=== PATIENT | male | born 1955 | race Caucasian/White ===

== ENCOUNTER 2022-03-11 23:41 | Inpatient (IN) | payer OTHER ==
[~2022-03-11] VITALS: Ht 180.3 cm; Wt 70.3 kg
--- NOTE | 2022-03-11 23:55 | NUR ---
IV CANNULA G20 INSERTED ON RIGHT AC. BLOOD DRAWN AND SENT TO LAB
--- NOTE | 2022-03-11 23:56 | NUR ---
RT AT BEDSIDE
--- NOTE | 2022-03-11 23:57 | NUR ---
EKG DONE AT BEDSIDE
[2022-03-12] VITALS (63 sets, daily range): BP systolic 0–120; BP diastolic 0–95
--- NOTE | 2022-03-12 | NUR ---
RT NOTE pt rec'd on CPAP mask @ 15lpm per [employer]. Pt showed tachypnea, accesory muscle usage, and tachycardia. Pt placed on bipap on noted settings per md orders. Alarms are set and audible. Ambu bag at bedside. bipap plugged into red outlet. ABG to be taken within 1 hour Addendum: 03/12/22 at 0242 by CHERELLE DUNBAR RT Amended: Links added.
[2022-03-12 00:03] LABS: BASOPHILS # (AUTO) 0.1 K/uL (0.0-0.2); BASOPHILS % (AUTO) 0.7 % (0.0-2.0); EOSINOPHILS % (AUTO) 0.1 % (0.0-6.0); HEMATOCRIT 41 % (39-51); LYMPHOCYTES # (AUTO) 2.9 K/uL (0.8-4.8); MEAN CORPUSCULAR HGB CONC 32 g/dl (31.0-36.0); MEAN CORPUSCULAR VOLUME 95 fL (80-96); MONOCYTES # (AUTO) 0.3 K/uL (0.1-1.30); MONOCYTES % (AUTO) 1.5 % (2.0-12.0); NEUTROPHILS # (AUTO) 17.1 K/uL (1.8-8.9); NEUTROPHILS % (AUTO) 83.7 % (43.0-81.0); PLATELET COUNT (AUTO) 332 K/uL (150-450); RED BLOOD CELL COUNT(AUTO) 4.28 MIL/uL (4.5-6.0); WHITE BLOOD COUNT (AUTO) 20.5 K/uL (4.3-11.0)
[2022-03-12] MEDS ORDERED: IV NS 0.9% 250 ML IV ONE ×2 (00:03→14:20)
[2022-03-12] MEDS ORDERED: CT SWABBABLE VALVE TRANS SET 1 EA INFUS.SET MC ONE ×2 (00:03→14:20)
[2022-03-12] MEDS ORDERED: IOHEXOL-350 100 ML VIAL IV ONE ×2 (00:03→14:19)
[2022-03-12 00:09] LABS: CALCIUM, SERUM 9.5 mg/dL (8.5-10.1); CARBON DIOXIDE 22 mmol/L (21-32); CHLORIDE 95 mmol/L (98-107); CREATININE 1.4 mg/dL (0.6-1.3); GLUCOSE 208 mg/dL (74-106); POTASSIUM 3.8 mmol/L (3.5-5.1); SODIUM SERUM 131 mmol/L (136-145); UREA NITROGEN, BLOOD 21 mg/dL (7-18)
--- NOTE | 2022-03-12 00:18 | NUR ---
TROP 219
--- NOTE | 2022-03-12 00:23 | NUR ---
Patricia luna in EDM - 03/12/22 at 0612 by KETTY INTUBATION DONE AT BEDSIDE BY DR JONES USING ET TUBE 7.5, LIP LEVEL 22CM
--- NOTE | 2022-03-12 00:25 | NUR ---
Patricia luna in ED - 03/12/22 at 0612 by KETTY [facility] F16 INSERTED. URINE SPECIMEN SENT TO LAB
--- NOTE | 2022-03-12 00:40 | NUR ---
BROUGHT TO CT DEPT
--- NOTE | 2022-03-12 00:45 | NUR ---
PATIENT'S CPAP SETTING. EPAP 23, IPAP 14, RATE 18, FI02 100%.
--- NOTE | 2022-03-12 01:18 | NUR ---
PATIENT BECAME UNRESPONSIVE. NOTICED APNEA DESPITE CPAP. MD MADE AWARE. PATIENT IS FOR INTUBATION. O2 SATS 84%
--- NOTE | 2022-03-12 01:20 | NUR ---
AMBUBAGGING DONE AT 15LPM. MD PREPARING FOR INTUBATION HR 62BPM, BP 128/99mmHg, Sat 84%
--- NOTE | 2022-03-12 01:22 | NUR ---
INTUBATION MEDS: SUCCINYLCHOLINE IVP 100MG AND ETOMIDATE 2OMG IVP GIVEN
--- NOTE | 2022-03-12 01:23 | NUR ---
INTUBATION DONE AT BEDSIDE BY DR ALFREDO. USING ET TUBE 7.5, LIP LEVEL 22CM
--- NOTE | 2022-03-12 01:25 | NUR ---
IFC F16 INSERTED. URINE SPECIMEN SENT TO LAB
[2022-03-12] MEDS ORDERED: HEPARIN SODIUM, PORCINE 5000 UNITS/1 ML VIAL ONE (01:29)
[2022-03-12] MEDS ORDERED: HEPARIN INFUSION/D5W 500 ML IV PRN ×2 (01:30→16:00)
[2022-03-12] MEDS ORDERED: HEPARIN SODIUM, PORCINE 5000 UNITS/1 ML VIAL IV ONE (01:30)
--- NOTE | 2022-03-12 01:30 | NUR ---
RT NOTE LATE ENTRY RT called to bedside. Pt showed shallow breathing and Low SPo2. Pt orally intubated via ETT sz #7.5 secured at 22CM at the lipline Per md orders. Color change noted via Co2 Detector. Clear bilateral breath sounds noted on auscultation. Pt placed on [facility] vent on noted settings per md orders. Alarms are set and audible. Vent plugged into red outlet. Ambu bag at bedside. Waiting on Chest xray results. ABG to be taken within 1 hour. Addendum: 03/12/22 at 0253 by CHERELLE DUNBAR RT Amended: Links added.
--- NOTE | 2022-03-12 01:50 | NUR ---
ASSOCIATE DENTIST AT BEDSIDE
[2022-03-12] MEDS ORDERED: MIDAZOLAM HCL 5 MG/5ML VIAL ONE (01:55)
[2022-03-12] MEDS ORDERED: HEPARIN INFUSION/D5W 500 ML IV ONE (01:59)
[2022-03-12] MEDS ORDERED: FENTANYL CITRAT IV 2,500 MCG in IV NS 0.9% 200 ML IV PRN ×2 (02:00→05:00)
[2022-03-12] MEDS ORDERED: MIDAZOLAM HCL 5 MG/5ML VIAL IV ONE (02:00)
[2022-03-12] MEDS ORDERED: MIDAZOLAM HCL 100 MG in IV NS 0.9% 80 ML IV PRN ×2 (02:00→05:00)
[2022-03-12] MEDS ORDERED: IV NS 0.9% 1,000 ML IV PRN ×2 (02:00→03:30)
--- NOTE | 2022-03-12 02:08 | NUR ---
HEPARIN INFUSION STARTED ON RIGHT AC G20 AT 1,250U/HR.
--- NOTE | 2022-03-12 02:10 | NUR ---
rt note late entry ETT advanced 3CM Per MD orders. ETT patent and secured at 25CM at the [facility]. Addendum: 03/12/22 at 0254 by CHERELLE DUNBAR RT Amended: Links added.
[2022-03-12] MEDS ORDERED: MIDAZOLAM 50 MG/10 ML VIAL ONE (02:18)
--- NOTE | 2022-03-12 02:26 | NUR ---
VERSED DRIP 50MG/5OML NS STARTED. RUNNING AT 1MG/HR. ATTACHED TO IV PAUL ON LEFT HAND G18
[2022-03-12 02:38] LABS: ABG BASE EXCESS -8.9 mmol/L; ABG PCO2 39.8 mmHg (35.0-45.0); ABG PH 7.262 (7.350-7.450); ABG PO2 117.1 mmHg (75.0-100.0); COHb 0.3 % (0.5-1.5); MetHb 0.3 % (0.0-1.5); O2Hb 96.7 % (94.0-97.0); SITE, ABG Right Radial; VENT MODE, BG AC 22 550 100% +0
--- NOTE | 2022-03-12 03:01 | NUR ---
REPORT GIVEN TO CN ED.
[2022-03-12] MEDS ORDERED: PROPOFOL 100 ML ONE (03:11)
--- NOTE | 2022-03-12 03:20 | NUR ---
PROPOFOL FOR SEDATION GIVEN AT 5MCG/KG/MIN. PATIENT IS RESTLESS. BP 118/63mmHg, hr 148, SATS 96%
--- NOTE | 2022-03-12 03:25 | NUR ---
PROPOFOL DRIP ADJUSTED TO 10MCG/KG/MIN. PATIENT IS STILL RESTLESS REGARDLESS. VITALS BP 109/64mmhg, HR 146BPM, SATS 98%
[2022-03-12] MEDS ORDERED: ONDANSETRON HCL/PF 4 MG/2 ML VIAL IVP PRN (03:30)
[2022-03-12] MEDS ORDERED: PROPOFOL 100 ML IV PRN (03:30)
[2022-03-12] MEDS ORDERED: ACETAMINOPHEN 325 MG TABLET PO PRN (03:30)
--- NOTE | 2022-03-12 03:30 | NUR ---
PROPOFOL DRIP INCREASED TO 15MCG/KG/MIN. BP 109/61mmhg, HR 137bpm, SATS 98%
--- NOTE | 2022-03-12 03:35 | NUR ---
PT IS STILL RESTLESS. PROPOFOL DRIP TITRATED TO 20MCG/KG/MIN WITH BP 101/61mmHg, HR 137bpm, SATS 98%
--- NOTE | 2022-03-12 03:37 | NUR ---
BROUGHT TO CT DEPT ACCOMPANIED BY RT/CN/RN
--- NOTE | 2022-03-12 03:51 | NUR ---
CT SCAN OF BRAIN DONE.
[2022-03-12] MEDS ORDERED: CEFEPIME 1 GM in IV D5W 50 ML IV ONE (04:00)
--- NOTE | 2022-03-12 04:05 | NUR ---
LATEST BP 70/56mmHg, HR 121bpm, SATS 96%. WILL INFORM LOG SNAKER HECTOR IF SHE WANTS TO START LEVOPHED
--- NOTE | 2022-03-12 04:15 | NUR ---
LEVOPHED STARTED AT 0.1MCG/KG/MIN. BP 74/56mmHg, HR 123bpm, SAT 96%
--- NOTE | 2022-03-12 04:15 | NUR ---
RECEIVED AN ORDER FROM VANESSA BAUER TO START PATIENT ON LEVOPHED DRIP 8MG/250ML.
[2022-03-12] MEDS ORDERED: NOREPINEPHRINE 4 MG/4 ML AMPUL IV ONE ×3 (04:18→20:07)
--- NOTE | 2022-03-12 04:20 | NUR ---
LEVOPHED STARTED AT 0.2MCG/KG/MIN. BP 71/49mmHg, HR 131bpm, SAT 96%
--- NOTE | 2022-03-12 04:25 | NUR ---
LEVOPHED STARTED AT 0.3MCG/KG/MIN. BP 80/49mmHg, HR 123bpm, SAT 96%
--- NOTE | 2022-03-12 04:30 | NUR ---
LEVOPHED STARTED AT 0.4MCG/KG/MIN. BP 85/49mmHg, HR 138bpm, SAT 100%
[2022-03-12] MEDS ORDERED: CEFEPIME 1 GM VIAL ONE (04:31)
--- NOTE | 2022-03-12 04:35 | NUR ---
Patricia luna in EDM - 03/12/22 at 0452 by KETTY LEVOPHED STARTED AT 0.5MCG/KG/MIN. BP 85/49mmHg, HR 1138bpm, SAT 100%
--- NOTE | 2022-03-12 04:35 | NUR ---
LEVOPHED STARTED AT 0.5MCG/KG/MIN. BP 85/49mmHg, HR 138bpm, SAT 100%
--- NOTE | 2022-03-12 04:40 | NUR ---
LEVOPHED STARTED AT 0.6MCG/KG/MIN. BP 81/59mmHg, HR 140bpm, SAT 100%
--- NOTE | 2022-03-12 04:45 | NUR ---
LEVOPHED STARTED AT 0.7MCG/KG/MIN. BP 89/57mmHg, HR 123bpm, SAT 96%
--- NOTE | 2022-03-12 04:49 | NUR ---
LATEST BP 107/70mmHg, HR 142bpm, SATS 100%
--- NOTE | 2022-03-12 05:04 | NUR ---
LEVOPHED TITRATED DOWN AT 0.6MCG/KG/MIN. BP 107/81mmHg, HR 134bpm, SAT 100%
[2022-03-12 06:08] LABS: ABG BASE EXCESS -8.3 mmol/L; ABG PCO2 34.8 mmHg (35.0-45.0); ABG PH 7.308 (7.350-7.450); ABG PO2 146.5 mmHg (75.0-100.0); COHb 0.3 % (0.5-1.5); MetHb 0.4 % (0.0-1.5); O2Hb 97.7 % (94.0-97.0); PEEP,BG 0 cm H2O; SITE, ABG Right Radial; VENT MODE, BG AC 22 600 100% +0; VT, ABG 600 mL
--- NOTE | 2022-03-12 06:24 | NUR ---
2DECHO DONE AT BEDSIDE
--- NOTE | 2022-03-12 07:19 | NUR ---
CENTRAL LINE INSERTED BY DR BLANCHARD AT RIGHT FEMORAL AREA.
--- NOTE | 2022-03-12 07:20 | NUR ---
REPORT GIVEN TO MARIZA RUIZ. PATIENT HAS HEPARIN DRIP AT 1,250U/HR, PROPOFOL DRIP AT 30mcg/kg.hr, LEVOPHED DRIP AT 0.6mcg/kg/min. PATIENT STILL WITH ET ATTACHED TO VENT ON AC MODE, FiO2 100%, TV 550, RATE 22
--- NOTE | 2022-03-12 07:23 | NUR ---
LEVOPHED REQUESTED FROM PHARMACY
--- NOTE | 2022-03-12 07:24 | NUR ---
RECIEVED - HEPARIN - 1250 DUE LAB, LEVO = 0.6 ,PROF = 30
[2022-03-12] MEDS ORDERED: NOREPINEPHRINE 8 MG in IV NS 0.9% 250ML IV PRN (07:30)
--- NOTE | 2022-03-12 08:18 | NUR ---
move to inpatient room safely per acls protocol
[2022-03-12] MEDS ORDERED: FOLI0.4T6 PO (08:59)
[2022-03-12] MEDS ORDERED: ASPI-1169 PO (08:59)
[2022-03-12] MEDS ORDERED: ONDA4TAB5 PO (08:59)
[2022-03-12] MEDS ORDERED: DEXA4TAB PO (08:59)
[2022-03-12] MEDS ORDERED: HYDR-4209 PO (08:59)
[2022-03-12] MEDS ORDERED: DOCU-141 PO (08:59)
[2022-03-12] MEDS ORDERED: CYAN-6 IM (08:59)
[2022-03-12] MEDS ORDERED: LISI40TA13 PO (08:59)
[2022-03-12] MEDS ORDERED: GUAI5SYR4 PO (08:59)
[2022-03-12] MEDS ORDERED: ATOR10TA PO (08:59)
[2022-03-12] MEDS ORDERED: OMEP40CA21 PO (08:59)
[2022-03-12] MEDS ORDERED: PANTOPRAZOLE 40 MG VIAL IV SCH (09:00)
[2022-03-12] MEDS ORDERED: SUCCINYLCHOLINE CHLORIDE 20 MG/ML VIAL IV ONE (09:50)
[2022-03-12] MEDS ORDERED: ETOMIDATE 2 MG/ML VIAL IV ONE (09:50)
[2022-03-12] MEDS ORDERED: SODIUM BICARBONATE SYR 50 MEQ/50 ML DISP.SYRIN IV ONE ×3 (09:51→15:36)
[2022-03-12] MEDS ORDERED: EPINEPHRINE (1:10,000) SYRINGE 1 MG/10 ML DISP.SYRIN IVP ONE ×2 (09:51→15:35)
[2022-03-12] MEDS: PHENYLEPHRINE 100 MG in IV NS 0.9% 240 ML IV PRN ×2 (09:53→19:05)
[2022-03-12 10:01] LABS: BASOPHILS # (AUTO) 0.1 K/uL (0.0-0.2); BASOPHILS % (AUTO) 0.2 % (0.0-2.0); EOSINOPHILS % (AUTO) 0.1 % (0.0-6.0); HEMATOCRIT 35 % (39-51); HEMOGLOBIN 11.3 g/dL (13.5-17.5); LYMPHOCYTES # (AUTO) 2.3 K/uL (0.8-4.8); MEAN CORPUSCULAR HGB CONC 32 g/dl (31.0-36.0); MEAN CORPUSCULAR VOLUME 95 fL (80-96); MONOCYTES # (AUTO) 0.5 K/uL (0.1-1.30); NEUTROPHILS # (AUTO) 22.7 K/uL (1.8-8.9); NEUTROPHILS % (AUTO) 88.7 % (43.0-81.0); PLATELET COUNT (AUTO) 287 K/uL (150-450); WHITE BLOOD COUNT (AUTO) 25.6 K/uL (4.3-11.0)
[2022-03-12 10:08] LABS: CALCIUM, SERUM 7.8 mg/dL (8.5-10.1); CREATININE 1.7 mg/dL (0.6-1.3); MAGNESIUM 1.5 mg/dL (1.8-2.4); PHOSPHORUS 5.4 mg/dL (2.5-4.9); POTASSIUM 4.4 mmol/L (3.5-5.1)
[2022-03-12 10:25] LABS: LYMPHOCYTES % (MANUAL) 8 % (16-48); MONOCYTES % (MANUAL) 2 % (0-11.0); NEUTROPHILS % (MANUAL) 90 (42-76)
[2022-03-12] MEDS ORDERED: VASOPRESSIN INJ 40 UNIT in IV NS 0.9% 38 ML IV PRN (11:00)
[2022-03-12] MEDS ORDERED: EPINEPHRINE (1:1000) 5 MG in IV NS 0.9% 250 ML IV PRN (11:00)
[2022-03-12] MEDS ORDERED: ALTEPLASE 100 MG in WATER FOR INJECTION,STERILE 100 ML IV ONE (11:00)
[2022-03-12] MEDS ORDERED: Sodium Bicarbonate 150 MEQ in IV D5W 1,000 ML IV SCH (11:30)
[2022-03-12] MEDS: IPRATROPIUM NEB FS 0.5 MG/2.5 ML AMPUL.NEB NEB SCH ×3 (11:53→20:05)
[2022-03-12] MEDS: methylPREDNISolone SOD SUCC 40 MG/ML VIAL IV SCH ×2 (13:00→21:35)
[2022-03-12] MEDS ORDERED: EPINEPHRINE (1:1000) 10 MG in IV NS 0.9% 240 ML IV PRN (13:30)
[2022-03-12 13:51] LABS: ABG BASE EXCESS -15.5 mmol/L; ABG OXYGEN SATURATION 94.8 % (92.0-98.5); ABG PCO2 34.4 mmHg (35.0-45.0); ABG PO2 97.4 mmHg (75.0-100.0); AaDO2 581.2 mmHg; COHb 0.3 % (0.5-1.5); MetHb 0.3 % (0.0-1.5); O2Hb 94.2 % (94.0-97.0); SITE, ABG Left Brachial; VENT MODE, BG ac 22 600 0 100%
[2022-03-12] MEDS ORDERED: EPINEPHRINE (1:1000) 1 MG/ML AMPUL SUBCUT ONE ×2 (14:05→15:36)
[2022-03-12] MEDS ORDERED: NOREPINEPHRINE 32 MG in IV NS 0.9% 218 ML IV PRN (15:00)
[2022-03-12] MEDS: EPINEPHRINE (1:1000) 10 MG in IV NS 0.9% 240 ML IV PRN ×4 (16:45→21:23)
[2022-03-12 16:48] LABS: EOSINOPHILS % (AUTO) 0.1 % (0.0-6.0); LYMPHOCYTES # (AUTO) 0.8 K/uL (0.8-4.8); MEAN CORPUSCULAR HGB CONC 30 g/dl (31.0-36.0); MONOCYTES % (AUTO) 0.7 % (2.0-12.0); WHITE BLOOD COUNT (AUTO) 21.7 K/uL (4.3-11.0)
[2022-03-12 16:53] LABS: BASOPHILS % (AUTO) 0.1 % (0.0-2.0); HEMATOCRIT 22 % (39-51); LYMPHOCYTES % (AUTO) 3.5 % (20.0-44.0); MEAN CORPUSCULAR VOLUME 101 fL (80-96); MONOCYTES # (AUTO) 0.2 K/uL (0.1-1.30); NEUTROPHILS # (AUTO) 20.8 K/uL (1.8-8.9); NEUTROPHILS % (AUTO) 95.6 % (43.0-81.0); PLATELET COUNT (AUTO) 202 K/uL (150-450); RED BLOOD CELL COUNT(AUTO) 2.13 MIL/uL (4.5-6.0)
[2022-03-12 16:56] LABS: HEMOGLOBIN 6.5 g/dL (13.5-17.5)
[2022-03-12] MEDS ORDERED: CEFEPIME 2 GM in IV D5W 100 ML IV SCH (17:00)
[2022-03-12 17:58] LABS: MEAN CORPUSCULAR HGB CONC 29 g/dl (31.0-36.0)
[2022-03-12 18:03] LABS: MEAN CORPUSCULAR VOLUME 103 fL (80-96); PLATELET COUNT (AUTO) 181 K/uL (150-450); WHITE BLOOD COUNT (AUTO) 19.5 K/uL (4.3-11.0)
[2022-03-12 18:08] LABS: HEMATOCRIT 19 % (39-51); HEMOGLOBIN 5.4 g/dL (13.5-17.5)
--- NOTE | 2022-03-12 18:11 | NUR ---
PT CODED MULTIPLE TIMES (SEE CHART FOR DOCUMENTATION) EPI AND BICARB PUSHED. PT WAS ABLE TO BE RESUSCITATED NO SHOCKING WAS REQUIRED. PT WAS TAKEN TO CT FOR VISUALIZATION OF THE HEAD AND CHEST WITH ACLS TRANSPORT. ALL LIFE SAVING MEDICATION RUNNING. UPON RESULTING RADIOLOGIST DR. GRADY SUSPECTED ABDOMINAL BLEEDING AND SUGGESTED WE TAKE AN ABDOMINAL CT TO CONFIRM BLEEDING. UPON SUSPICION DR. ROBERSON WAS NOTIFIED OF FINDING AND ORDERED ABDOMINAL CT, CBC, AND TO HOLD HEPARIN FOR SUSPECTED ABDOMINAL BLEEDING. AFTER LAB RESULTS CAME BACK SHOWING A GROSS DROP IN HGB LATER LAB RESULTS AND IMAGING CONFIRM THERE IS A BLEED. IV FLUIDS ARE BEING RAN TO REPLACE FLUIDS PRESSORS RUNNING, PT IN STABLE CONDITION.
[2022-03-12 18:26] LABS: BAND % (MANUAL) 7 % (0.0-5.0); LYMPHOCYTES % (MANUAL) 4 % (16-48); MONOCYTES % (MANUAL) 1 % (0-11.0); NEUTROPHILS % (MANUAL) 88 (42-76)
--- NOTE | 2022-03-12 19:30 | NUR ---
HEAD BUTLER RCD PT MAXED ON LEVOPHED, NEOSYNEPHRINE, VASOPRESSIN, EPI; BICARB DRIP. TEMP 85 VIA TEMPORAL SCAN. AWAITING BLOOD TRANSFUSION. BRONWYN AT BEDSIDE AWARE OF PTS CONDITION.
--- NOTE | 2022-03-12 19:54 | NUR ---
CLOSING PT IN GRAVE CONDITION CURRENTLY HOLDING PULSE IN THE 90'S. RESPIRATIONS ARE SYNCED WITH VENT. PUPILS ARE FIXED AND DILATED NO RESPONSE TO DEEP PAIN. BLOOD PRESSURE CURRENTLY 80/46. MAX'ED ON ALL PRESSORS. FLUIDS RUNNING TO SUPPORT BP. HEAD, CHEST, AND ABDOMINAL CT RESULTED AND SHOW SIGNS OF BLEEDING IN THE ABDOMEN. H&H ARE LOW BLOOD AND PLASMA ARE ORDERED BUT NOT READY FROM THE LAB.
[2022-03-12] MEDS ORDERED: VASOPRESSIN INJ 20 UNIT/ML VIAL ONE (19:55)
--- NOTE | 2022-03-12 21:30 | NUR ---
PRIMARY EDUCATION PROFESSOR BRONWYN AND DAUGHTER AT BEDSIDE WITH PTS VITAL SIGNS DECLINING; FAMILY AGREED TO MAKE PT DNR/DNI AND CONTINUE WITH ALL PRESENT TREATMENT.
--- NOTE | 2022-03-12 21:40 | NUR ---
ILLUMINATING ENGINEEROPERATOR COMMAND SUPPORT SYSTEMS REQUESTED BLOOD TRANSFUSION TO BE STOPPED; TRANSFUSION STARTED AT 2111 HOWEVER PT DECLINING RAPIDLY AT THIS POINT.
--- NOTE | 2022-03-12 21:55 | NUR ---
STERILE TECHNICIAN NOTE PT NOTED UNRESPONSIVE TO PAINFUL STIMULI; PUPILS FIXED. NO PALPABLE RADIAL PULSES.. NO BREATH SOUNDS NOTED.NO CARDIAC ACTIVITY.
--- NOTE | 2022-03-12 22:07 | NUR ---
DIRECTOR OF HOME ECONOMICS S/W MARC AT [facility] [phone] FOR FOLLOW UP [phone]
--- NOTE | 2022-03-12 22:20 | NUR ---
MOBILE LOUNGE DRIVER OR OPERATOR BODY RELEASED BY MESS ATTENDANTJARET YATES
--- NOTE | 2022-03-12 23:39 | NUR ---
[employer] ARCHITECT BODY TAKEN TO MELINDA
== END 2022-03-12 21:55 | DRG 208 ==
LOC: ER 23:43 → ICU 03-12 02:22 → UNDODISIN 03-13 00:35
PROVIDERS: ADMIT Nurse Practitioner Acute Care; ATTEND Nurse Practitioner Acute Care
PROC: 0BH17EZ Insertion of Endotracheal Airway into Trachea, Via Natural or Artificial Opening (ICD-10-PCS; principal; 2022-03-12)
PROC: 5A1935Z Respiratory Ventilation, Less than 24 Consecutive Hours (ICD-10-PCS; 2022-03-12)
PROC: 06HY33Z Insertion of Infusion Device into Lower Vein, Percutaneous Approach (ICD-10-PCS; 2022-03-12)
PROC: 5A09357 Assistance with Respiratory Ventilation, Less than 24 Consecutive Hours, Continuous Positive Airway Pressure (ICD-10-PCS; 2022-03-12)
DX: I26.99 Other pulmonary embolism without acute cor pulmonale (principal); A41.9 Sepsis, unspecified organism; G93.41 Metabolic encephalopathy; J96.01 Acute respiratory failure with hypoxia; J96.02 Acute respiratory failure with hypercapnia; N17.0 Acute kidney failure with tubular necrosis; I21.4 Non-ST elevation (NSTEMI) myocardial infarction; K66.1 Hemoperitoneum; R65.21 Severe sepsis with septic shock; J69.0 Pneumonitis due to inhalation of food and vomit; D68.69 Other thrombophilia; E87.1 Hypo-osmolality and hyponatremia; C34.31 Malignant neoplasm of lower lobe, right bronchus or lung; I82.432 Acute embolism and thrombosis of left popliteal vein; I10 Essential (primary) hypertension; E78.5 Hyperlipidemia, unspecified; D63.0 Anemia in neoplastic disease; Z85.47 Personal history of malignant neoplasm of testis; I46.9 Cardiac arrest, cause unspecified; Z66 Do not resuscitate; D64.9 Anemia, unspecified; R57.0 Cardiogenic shock
CPT/HCPCS: 36415; 36600; 70450-TC; 71045-TC; 80048-TC; 80061-TC; 82803-TC; 82962-TC; 83735-TC; 84100-TC; 84484-TC; 85025-TC; 85027-TC; 85730-TC; 86850-TC; 87081-TC; 93307-TC; 93970-TC; 94002-TC; 99082-TC; G0378; J0171; J0330; J0692; J1644; J2250; J2370; J2920; J2997; J3490; J7030; J7050; J7060; J7070; P9016; Q9967